=== PATIENT | male | born 1965 | race Caucasian/White ===

== ENCOUNTER 2018-08-07 09:02 | Outpatient (CLI) | payer OTHER, SELFPAY ==
[2018-08-07 10:10] LABS: ALT 29 U/L (12-78); AST 19 U/L (15-37); Albumin 3.9 g/dL (3.4-5.0); Alkaline Phosphatase 70 U/L (46-116); Anion Gap 9.5 mmol/L (3-11); BUN 18 mg/dL (7-18); Bilirubin, Total 0.4 mg/dL (0.2-1.0); CO2 30.5 mmol/L (21.0-32.0); Calcium 9.4 mg/dL (8.5-10.1); Chloride 100 mmol/L (98-107); Creatine Kinase 111 U/L (39-308); Glucose 101 mg/dL (70-100); Potassium 4.5 mmol/L (3.5-5.1); Sodium 140 mmol/L (136-145); Total Protein 7.6 g/dL (6.4-8.2)
[2018-08-07 10:21] LABS: Cholesterol 227 mg/dL (50-200); HDL Cholesterol 64 mg/dL (40-60); LDL CHOLESTEROL 133 mg/dL (<100); Triglyceride 138 mg/dL (30-150)
[2018-08-08 10:42] LABS: PSA, Screening 0.3 ng/ml (0-3.5)
== END 2018-08-07 09:22 ==
PROVIDERS: PCP Nurse Practitioner Family; Visit Provider Nurse Practitioner Family
DX: I10 Essential (primary) hypertension (principal); Z00.00 Encounter for general adult medical examination without abnormal findings; Z13.220 Encounter for screening for lipoid disorders; Z12.5 Encounter for screening for malignant neoplasm of prostate
CPT/HCPCS: 36415; 80053; 80061; 82550; 83721; 84153

== ENCOUNTER 2019-03-16 14:41 | Outpatient (REF) | payer OTHER, SELFPAY ==
--- NOTE | 2019-03-16 10:30 | SKI_PTH ---
PATIENT: Harsh Gambino LOC: [facility] U#:[id number] AGE/SX: 53/M ROOM: RE03/16/[address]: Dustin Blake : 1965 BED: DIS: 03/16/2019 SPEC #: [id number] RECD: 03/16/19 18:21 STATUS: NOAM SANTIAGO #: [id number] COLT: 03/16/19 10:[address]: Dustin Blake DEPT: Surgical Specimen RECD BY: An Lozano ENTERED: 03/16/19 18:21 SP TYPE: SKI OTHR DR: Zaira Prescott Tissues: 1 - SKIN BIOPSY(SHAVE/PUNCH) Procedures: SKIN LEVEL 4 Comments: [id number]
== END 2019-03-16 15:01 ==
LOC: NCHCN 14:41
PROVIDERS: PCP Nurse Practitioner Family; Visit Provider Family Medicine
DX: D23.61 Other benign neoplasm of skin of right upper limb, including shoulder (principal)
CPT/HCPCS: 88305

== ENCOUNTER 2019-05-07 12:56 | Outpatient (REF) | payer OTHER, SELFPAY ==
[2019-05-07 13:47] LABS: HCT 44.7 % (40.0-50.0); Mean Corp. HGB Concentration 33.6 g/dL (32.0-36.0); Mean Corpuscular Hemoglobin 31.4 pg (27.0-33.0); Mean Corpuscular Volume 93.5 fL (80-95); Platelet Count 380 x1000/uL (130-400); RBC 4.78 m/cumm (4.50-6.00); RBC Distribution Width 12.3 % (11.8-14.1); White Blood Cell Count 9.08 k/cumm (4.4-10.8)
[2019-05-07 14:17] LABS: Anion Gap 11.8 mmol/L (3-11); BUN 20 mg/dL (7-18); CO2 28.2 mmol/L (21.0-32.0); CREATININE 0.97 mg/dL (0.70-1.30); Calcium 9.3 mg/dL (8.5-10.1); Calculated LDL 154 mg/dL; Chloride 101 mmol/L (98-107); Cholesterol 230 mg/dL (50-200); Glucose 94 mg/dL (70-100); HDL Cholesterol 59 mg/dL (40-60); Potassium 3.8 mmol/L (3.5-5.1); Sodium 141 mmol/L (136-145); Triglyceride 89 mg/dL (30-150)
== END 2019-05-07 13:16 ==
LOC: NCHCN 12:56
PROVIDERS: PCP Nurse Practitioner Family; Visit Provider Nurse Practitioner Family
DX: I10 Essential (primary) hypertension (principal); Z13.220 Encounter for screening for lipoid disorders
CPT/HCPCS: 80048; 80061; 85027

== ENCOUNTER 2020-11-12 08:22 | Outpatient (REF) | payer OTHER, SELFPAY ==
[2020-11-12 15:42] LABS: ALT 42 U/L (16-63); AST 26 U/L (15-37); Albumin 4.1 g/dL (3.4-5.0); Alkaline Phosphatase 69 U/L (46-116); Anion Gap 9.1 mmol/L (3-11); BUN 22 mg/dL (7-18); Bilirubin, Total 0.5 mg/dL (0.2-1.0); CO2 29.9 mmol/L (21.0-32.0); CREATININE 1.1 mg/dL (0.70-1.30); Calcium 9.6 mg/dL (8.5-10.1); Calculated LDL 129 mg/dL (<100); Chloride 102 mmol/L (98-107); Cholesterol 215 mg/dL (<200); Glucose 103 mg/dL (74-106); HDL Cholesterol 73 mg/dL (40-60); Potassium 4.3 mmol/L (3.5-5.1); Sodium 141 mmol/L (136-145); Total Protein 7.6 g/dL (6.4-8.2); Triglyceride 67 mg/dL (<150)
== END 2020-11-12 08:23 | disposition home or self-care (01) ==
LOC: NCHCN 08:22
PROVIDERS: PCP Nurse Practitioner Family; Visit Provider Nurse Practitioner Family
DX: E78.5 Hyperlipidemia, unspecified (principal); I10 Essential (primary) hypertension
CPT/HCPCS: 80053; 80061

== ENCOUNTER 2021-04-14 14:33 | Outpatient (REF) | payer OTHER, SELFPAY ==
[2021-04-19 15:08] LABS: Testosterone, Free 10.8 ng/dL (4.06-15.6); Testosterone, Total 566 ng/dL (240-950)
== END 2021-04-14 14:34 | disposition home or self-care (01) ==
LOC: NCHCN 14:33
PROVIDERS: PCP Nurse Practitioner Family; Visit Provider Family Medicine
DX: F52.21 Male erectile disorder (principal)
CPT/HCPCS: 84402; 84403; 84443

== ENCOUNTER 2021-10-12 12:48 | Outpatient (REF) | payer OTHER, SELFPAY ==
[2021-10-12 15:14] LABS: HCT 45.3 % (40.0-50.0); HGB 14.6 g/dL (13.5-17.5); MCH 30.1 pg (27.0-33.0); MCHC 32.2 % (32.0-36.0); MCV 93.4 fL (80-95); MPV 8.8 fL (8.0-11.0); Platelet Count 349 10^3/uL (130-400); RBC 4.85 10^6/uL (4.36-5.78); RDW 11.9 % (11.8-14.1); RDW-SD 41.3 fL; WBC 7.27 10^3/uL (4.4-10.8)
[2021-10-12 16:03] LABS: ALT 31 U/L (16-63); AST 22 U/L (15-37); Albumin 3.9 g/dL (3.4-5.0); Alkaline Phosphatase 78 U/L (46-116); Anion Gap 7.4 mmol/L (3-11); BUN 15 mg/dL (7-18); Bilirubin, Total 0.4 mg/dL (0.2-1.0); CO2 30.6 mmol/L (21.0-32.0); CREATININE 0.9 mg/dL (0.70-1.30); Calcium 9.3 mg/dL (8.5-10.1); Chloride 101 mmol/L (98-107); Glucose 96 mg/dL (74-106); Potassium 4.3 mmol/L (3.5-5.1); Sodium 139 mmol/L (136-145); Total Protein 7.7 g/dL (6.4-8.2)
== END 2021-10-12 12:49 | disposition home or self-care (01) ==
LOC: NCHCN 12:48
PROVIDERS: PCP Nurse Practitioner Family; Visit Provider Family Medicine
DX: I10 Essential (primary) hypertension (principal); R73.03 Prediabetes
CPT/HCPCS: 80053; 85027; 83036

== ENCOUNTER 2022-02-02 10:14 | Outpatient (REF) | payer OTHER, SELFPAY ==
--- NOTE | 2022-02-02 08:30 | SKI_PTH ---
PATIENT: Harsh Gambino [facility] U[facility][id number] AGE/SX: 56/M ROOM: RE02/02/[address]: Mac Rivera : 1965 BED: DIS: 02/02/2022 SPEC #: [id number] RECD: 02/02/22 18:01 STATUS: NOMA REJean Marie #: [id number] COLT: 02/02/22 08:[address]: Mac Rivera DEPT: Surgical Specimen RECD BY: An Lozano ENTERED: 02/02/22 18:02 SP TYPE: MELIDA DE DIOS DR: Geovani Banks Tissues: 1 - SKIN BIOPSY(SHAVE/PUNCH) Procedures: SKIN LEVEL 4 Comments: [id number]
== END 2022-02-02 10:15 | disposition home or self-care (01) ==
LOC: NCHCN 10:14
PROVIDERS: PCP Nurse Practitioner Family; Visit Provider Family Medicine
DX: D23.71 Other benign neoplasm of skin of right lower limb, including hip (principal)
CPT/HCPCS: 88305

== ENCOUNTER 2022-10-13 09:35 | Outpatient (REF) | payer OTHER, SELFPAY ==
[2022-10-13 15:17] LABS: Hemoglobin A1C 5.8 % (<5.7)
[2022-10-13 16:03] LABS: ALT 33 U/L (16-63); AST 19 U/L (15-37); Albumin 3.8 g/dL (3.4-5.0); Alkaline Phosphatase 86 U/L (46-116); Anion Gap 8.2 mmol/L (3-11); BUN 17 mg/dL (7-18); Bilirubin, Total 0.4 mg/dL (0.2-1.0); CO2 28.8 mmol/L (21.0-32.0); CREATININE 0.9 mg/dL (0.70-1.30); Calcium 9.3 mg/dL (8.5-10.1); Calculated LDL 120 mg/dL (<100); Chloride 104 mmol/L (98-107); Cholesterol 210 mg/dL (<200); Estimated GFR 100.86 (mL/min/1.73m2); Glucose 98 mg/dL (74-106); HDL Cholesterol 68 mg/dL (40-60); Potassium 4.2 mmol/L (3.5-5.1); Sodium 141 mmol/L (136-145); Total Protein 7.3 g/dL (6.4-8.2); Triglyceride 111 mg/dL (<150)
== END 2022-10-13 09:36 | disposition home or self-care (01) ==
LOC: NCHCN 09:35
PROVIDERS: Visit Provider Family Medicine
DX: Z00.00 Encounter for general adult medical examination without abnormal findings (principal); I10 Essential (primary) hypertension; R73.03 Prediabetes; E78.5 Hyperlipidemia, unspecified
CPT/HCPCS: 80053; 80061; 83036

== ENCOUNTER 2023-01-12 15:15 | Outpatient (REF) | payer OTHER, SELFPAY ==
--- NOTE | 2023-01-12 09:20 | SKI_PTH ---
PATIENT: Harsh Gambino LOC: [facility] U#:[id number] AGE/SX: 57/M ROOM: RE01/12/[address]: Mac Rivera : 1965 BED: DIS: 01/12/2023 SPEC #: [id number] RECD: 01/12/23 17:38 STATUS: NOAM SANTIAGO #: [id number] COLT: 01/12/23 09:[address]: Mac Rivera DEPT: Surgical Specimen RECD BY: An Lozano Tissues: 1 - SKIN BIOPSY(SHAVE/PUNCH) Procedures: SKIN LEVEL 4 Comments: [id number]
== END 2023-01-12 15:16 | disposition home or self-care (01) ==
LOC: NCHCN 15:15
PROVIDERS: Visit Provider Family Medicine
DX: D23.71 Other benign neoplasm of skin of right lower limb, including hip (principal)
CPT/HCPCS: 88305

== ENCOUNTER 2024-04-24 14:54 | Outpatient (REF) | payer OTHER, SELFPAY ==
[2024-04-24 15:36] LABS: Anion Gap 9.7 mmol/L (3-11); BUN 15 mg/dL (7-18); CO2 27.3 mmol/L (21.0-32.0); CREATININE 0.9 mg/dL (0.70-1.30); Calcium 9.3 mg/dL (8.5-10.1); Calculated LDL 140 mg/dL (<100); Chloride 102 mmol/L (98-107); Cholesterol 233 mg/dL (<200); Estimated GFR 99.62 (mL/min/1.73m2); Glucose 99 mg/dL (74-106); HDL Cholesterol 77 mg/dL (40-60); LDL CHOLESTEROL 136 mg/dL (<100); Potassium 4.1 mmol/L (3.5-5.1); Sodium 139 mmol/L (136-145); Triglyceride 81 mg/dL (<150)
[2024-04-24 15:38] LABS: Hemoglobin A1C 5.9 % (<5.7)
[2024-04-25 09:34] LABS: PSA, Screening 0.3 ng/mL (<=3.5)
== END 2024-04-24 14:55 | disposition home or self-care (01) ==
LOC: NCHCN 14:54
PROVIDERS: Visit Provider Family Medicine
DX: I10 Essential (primary) hypertension (principal); R73.03 Prediabetes; E78.5 Hyperlipidemia, unspecified; Z12.5 Encounter for screening for malignant neoplasm of prostate; Z13.1 Encounter for screening for diabetes mellitus
CPT/HCPCS: 80048; 80061; 83721; 84153; 83036

== ENCOUNTER 2025-06-11 15:11 | Outpatient (REF) | payer OTHER, SELFPAY ==
[2025-06-11 21:08] LABS: ALT 29 U/L (16-63); AST 18 U/L (15-37); Albumin 3.8 g/dL (3.4-5.0); Alkaline Phosphatase 81 U/L (46-116); Anion Gap 8.1 mmol/L (3-11); BUN 20 mg/dL (7-18); Bilirubin, Total 0.3 mg/dL (0.2-1.0); CO2 29.9 mmol/L (21.0-32.0); Calcium 9.1 mg/dL (8.5-10.1); Chloride 101 mmol/L (98-107); Glucose 91 mg/dL (74-106); Potassium 4.3 mmol/L (3.5-5.1); Sodium 139 mmol/L (136-145); Total Protein 7.3 g/dL (6.4-8.2)
[2025-06-12 18:28] LABS: PSA, Screening 0.3 ng/mL (<=3.5)
== END 2025-06-11 15:12 | disposition home or self-care (01) ==
LOC: NCHCN 15:11
PROVIDERS: Visit Provider Family Medicine
DX: I10 Essential (primary) hypertension (principal); E78.5 Hyperlipidemia, unspecified; Z12.5 Encounter for screening for malignant neoplasm of prostate
CPT/HCPCS: 80053; 83721; 84153